=== PATIENT | male | born 1995 | race Caucasian/White ===

== ENCOUNTER 2023-07-15 17:04 | Emergency (ER) | payer BC ==
[~2023-07-15] VITALS: Ht 180.3 cm; Wt 99.8 kg
[2023-07-15] MEDS ORDERED: Ondansetron Hydrochloride 4 MG/2 ML VIAL IV ONE (17:45)
[2023-07-15] MEDS ORDERED: Thiamine 200 MG/2 ML VIAL IV ONE (17:45)
[2023-07-15] MEDS ORDERED: SODIUM CHLORIDE 0.9% 1,000 ML IV ONE ×2 (17:45→18:45)
[2023-07-15 18:01] LABS: HEMATOCRIT 52.1 % (42.0-52.0); MEAN CELL VOLUME 83.4 fl (80.0-94.0); MEAN CORPUSCULAR HGB 29.9 pg (27.0-31.0); MEAN CORPUSCULAR HGB CONC 35.9 g/dl (33.0-37.0); MEAN PLATELET VOLUME 9.4 fl (9.6-12.3); PLATELET COUNT AUTOMATED 340 10*3/uL (130-400); RED BLOOD COUNT 6.25 10*6/uL (4.50-5.90); RED CELL DISTRI WIDTH 11.9 % (0-14.5); WHITE BLOOD COUNT 13.4 10*3/uL (4.8-10.8)
[2023-07-15 18:07] LABS: MANUAL DIFF REFLEX YES
[2023-07-15 18:07] LABS: BILIRUBIN 2+ (Negative); BLOOD Negative (Negative); CLARITY Turbid (Clear); COLOR Orange (Yellow); GLUCOSE Trace (Negative); KETONE Trace (Negative); LEUKO ESTERASE 1+ (Negative); NITRITE Positive (Negative); SPECIFIC GRAVITY >= 1.030 (1.001-1.030)
[2023-07-15 18:16] LABS: ACT PARTIAL THROMBO TIME 29.3 SECONDS (20.0-32.1)
[2023-07-15 18:22] LABS: BACTERIA 2+; MUCOUS 1+; RBC 0-2 rbc/hpf (0-2); WBC 16-20 wbc/hpf (0-5)
[2023-07-15 18:33] LABS: ALKALINE PHOSPHATASE 90 U/L (46-116); BUN 14 mg/dl (9-23); CHLORIDE 92 mmol/L (98-107); CPK 144 U/L (34-171); LIPASE 74 U/L (12-53); PLATELET SUFFICIENCY NORMAL (NORMAL); POTASSIUM 2.7 mmol/L (3.4-5.1); ROULEAUX SLIGHT; SGPT/ALT 15 U/L (5-49); TOTAL CELLS COUNTED 100 #CELLS; TOTAL PROTEIN 8.6 gm/dL (6.0-8.0)
[2023-07-15] MEDS ORDERED: Ceftriaxone Sodium 1 GM/10 ML SYR IV ONE (18:45)
[2023-07-15] MEDS ORDERED: POTASSIUM CHLORIDE 20 MEQ TAB PO ONE (18:45)
[2023-07-15] MEDS ORDERED: Ketorolac Tromethamine 30 MG/ML VIAL IV ONE (18:50)
[2023-07-15] MEDS ORDERED: ONDANSETRON4 MG SL (19:22)
[2023-07-15] MEDS ORDERED: OMNICEF300 MG PO (19:22)
== END 2023-07-15 20:04 | disposition left against medical advice (07) ==
LOC: ED 17:04
PROVIDERS: Nurse Practitioner Family
DX: N39.0 Urinary tract infection, site not specified (principal); E78.6 Lipoprotein deficiency; E87.1 Hypo-osmolality and hyponatremia; R11.2 Nausea with vomiting, unspecified; R19.7 Diarrhea, unspecified; Z53.29 Procedure and treatment not carried out because of patient's decision for other reasons